=== PATIENT | male | born 1960 | race Caucasian/White ===

== ENCOUNTER → 2018-08-01 | Outpatient (CLI) | payer OTHER ==
[~2018-08-01] MED LIST: IOHEXOL 300 MG/ML 100ML BOTTLE IJ ONE
[2018-08-01 10:12] LABS: BUN/Creatinine Ratio 10.7; Calcium 9.1 mg/dL (8.5-10.1); Potassium 4.2 mmol/L (3.5-5.1)
== END | disposition home or self-care (01) ==
LOC: CT 09:23
DX: N28.89 Other specified disorders of kidney and ureter (principal); I70.0 Atherosclerosis of aorta
CPT/HCPCS: 36415; 74177; 80048; Q9967